=== PATIENT | female | born 1950 | race Native Hawaiian/Other Pacific Islander ===

== ENCOUNTER 2016-03-17 09:56 | Outpatient (CLI) | payer OTHER | END 2016-03-17 19:21 | disposition home or self-care (01) | LOC: RESP 09:56 | DX: R91.8 Other nonspecific abnormal finding of lung field (principal) ==

== ENCOUNTER 2016-03-26 09:25 | Outpatient (CLI) | payer OTHER ==
[2016-03-26 10:59] LABS: PLATELET COUNT 193 K/uL (152-353)
[2016-03-26 11:01] LABS: POTASSIUM 3.5 mmol/L (3.6-5.2)
== END 2016-03-26 19:08 | disposition home or self-care (01) ==
LOC: LABW 09:25
PROVIDERS: Internal Medicine
DX: M25.511 Pain in right shoulder (principal); E11.9 Type 2 diabetes mellitus without complications
CPT/HCPCS: 36415; 80053; 80061; 81000; 82043; 82570; 82607; 83036; 84439; 84443; 85027

== ENCOUNTER 2016-04-25 13:33 | Observation (INO) | payer OTHER ==
[~2016-04-25] VITALS: Ht 167.6 cm; Wt 91.4 kg
[2016-04-25 14:34] VITALS: BP 116/77; TEMP 98.2; Ht 167.6 cm; Wt 91.4 kg
[2016-04-25] MEDS ORDERED: MELOXICAM7.5 MG PO (14:48)
[2016-04-25] MEDS ORDERED: VITAMIN D31000 UNI2 PO (14:49)
[2016-04-25] MEDS ORDERED: FISH OIL DOUB1200 MG PO (14:49)
[2016-04-25] MEDS ORDERED: CENTRUM SILVER1 TAB PO (14:49)
[2016-04-25] MEDS ORDERED: METFTAB PO (14:50)
[2016-04-25] MEDS ORDERED: METO50TA27 PO (14:50)
[2016-04-25] MEDS ORDERED: LISI20TA31 PO (14:50)
[2016-04-25 14:55] LABS: PLATELET COUNT 227 K/uL (152-353)
[2016-04-25 15:03] LABS: POTASSIUM 3.6 mmol/L (3.6-5.2)
[2016-04-25 15:55] VITALS: BP 116/77; TEMP 98.2
[2016-04-25 20:00] VITALS: BP 127/83; TEMP 98.4
[2016-04-26 00:17] VITALS: BP 129/69; TEMP 98.1
[2016-04-26 04:00] VITALS: BP 100/50; TEMP 98.1
[2016-04-26 06:51] LABS: PLATELET COUNT 176 K/uL (152-353)
[2016-04-26 07:00] LABS: POTASSIUM 4.2 mmol/L (3.6-5.2)
[2016-04-26 08:00] VITALS: BP 100/61; TEMP 97.7
[2016-04-26 12:00] VITALS: BP 129/65; TEMP 97.6
== END 2016-04-26 16:21 | disposition home or self-care (01) ==
LOC: MED/SURG 13:33
PROVIDERS: Emergency Medicine; ADMIT Internal Medicine
DX: E86.0 Dehydration (principal); R11.2 Nausea with vomiting, unspecified; R10.30 Lower abdominal pain, unspecified; N20.0 Calculus of kidney
CPT/HCPCS: 36415; 36591; 80048; 80053; 81000; 82150; 82565; 83690; 84520; 85027; 87328; 87329; 96365; 96366; 96367; 96374; 96375; 99220; G0378; G0379; J0744; J3490

== ENCOUNTER 2016-08-08 10:36 | Outpatient (CLI) | payer OTHER, MEDICARE ==
[~2016-08-08 10:36] MED LIST: CENTRUM SILVER1 TAB PO; FISH OIL DOUB1200 MG PO; LISI20TA31 PO; MELOXICAM7.5 MG PO; METFTAB PO; METO50TA27 PO; VITAMIN D31000 UNI2 PO
[2016-08-08 11:26] LABS: PLATELET COUNT 207 K/uL (152-353)
[2016-08-08 11:41] LABS: POTASSIUM 4.1 mmol/L (3.6-5.2)
== END 2016-08-08 11:40 | disposition home or self-care (01) ==
LOC: LABW 10:36
PROVIDERS: Internal Medicine
DX: E11.9 Type 2 diabetes mellitus without complications (principal)
CPT/HCPCS: 36415; 80053; 80061; 81000; 83036; 84443; 85027

== ENCOUNTER 2017-03-23 11:42 | Outpatient (CLI) | payer OTHER, MEDICARE ==
[2017-03-23 12:18] LABS: PLATELET COUNT 209 K/uL (152-353)
[2017-03-23 12:48] LABS: POTASSIUM 4.1 mmol/L (3.6-5.2)
== END 2017-03-23 22:00 | disposition home or self-care (01) ==
LOC: LABW 11:42
PROVIDERS: Physician Assistant
DX: E11.9 Type 2 diabetes mellitus without complications (principal); I10 Essential (primary) hypertension; R79.89 Other specified abnormal findings of blood chemistry; E55.9 Vitamin D deficiency, unspecified
CPT/HCPCS: 36415; 80053; 80061; 82306; 83036; 84439; 84443; 85027

== ENCOUNTER 2017-03-30 10:55 | Outpatient (CLI) | payer OTHER, MEDICARE | END 2017-03-30 19:41 | disposition home or self-care (01) | LOC: MAMMO 10:55 | DX: Z12.31 Encounter for screening mammogram for malignant neoplasm of breast (principal); Z13.820 Encounter for screening for osteoporosis; Z78.0 Asymptomatic menopausal state ==

== ENCOUNTER 2017-06-22 10:20 | Outpatient (CLI) | payer OTHER, MEDICARE | END 2017-06-22 20:03 | disposition home or self-care (01) | LOC: LABW 10:20 | PROVIDERS: Physician Assistant | DX: E78.4 Other hyperlipidemia (principal) | CPT/HCPCS: 36415; 80061 ==

== ENCOUNTER 2017-11-03 14:26 | Outpatient (CLI) | payer OTHER, MEDICARE | END 2017-11-03 23:55 | disposition home or self-care (01) | LOC: RESP 14:26 | DX: I10 Essential (primary) hypertension (principal); R07.89 Other chest pain | CPT/HCPCS: 93005 ==

== ENCOUNTER 2017-11-12 10:58 | Outpatient (CLI) | payer OTHER, MEDICARE | END 2017-11-12 23:21 | disposition home or self-care (01) | LOC: CT 10:58 | DX: R91.8 Other nonspecific abnormal finding of lung field (principal) ==

== ENCOUNTER 2018-02-19 09:16 | Outpatient (CLI) | payer OTHER, MEDICARE ==
[2018-02-19 09:46] LABS: PLATELET COUNT 187 K/uL (152-353)
[2018-02-19 10:15] LABS: POTASSIUM 3.7 mmol/L (3.6-5.2)
== END 2018-02-19 20:49 | disposition home or self-care (01) ==
LOC: LABW 09:16
PROVIDERS: Internal Medicine
DX: E11.9 Type 2 diabetes mellitus without complications (principal); E78.2 Mixed hyperlipidemia; R94.5 Abnormal results of liver function studies; E55.9 Vitamin D deficiency, unspecified
CPT/HCPCS: 36415; 80053; 80061; 82306; 83036; 84439; 84443; 85027

== ENCOUNTER 2018-04-02 09:28 | Outpatient (CLI) | payer OTHER, MEDICARE | END 2018-04-02 18:58 | disposition home or self-care (01) | LOC: MAMMO 09:28 | DX: Z12.31 Encounter for screening mammogram for malignant neoplasm of breast (principal) ==

== ENCOUNTER 2018-04-13 10:16 | Outpatient (CLI) | payer OTHER, MEDICARE | END 2018-04-13 19:47 | disposition home or self-care (01) | LOC: MAMMO 10:16 | DX: R92.8 Other abnormal and inconclusive findings on diagnostic imaging of breast (principal) ==

== ENCOUNTER 2018-05-20 15:00 | Outpatient (CLI) | payer OTHER, MEDICARE ==
[2018-05-20 15:45] LABS: PLATELET COUNT 167 K/uL (152-353)
[2018-05-20 16:03] LABS: POTASSIUM 3.7 mmol/L (3.6-5.2)
== END 2018-05-20 20:22 | disposition home or self-care (01) ==
LOC: LABW 15:00
PROVIDERS: Physician Assistant
DX: G44.201 Tension-type headache, unspecified, intractable (principal); R11.0 Nausea; I10 Essential (primary) hypertension; E11.9 Type 2 diabetes mellitus without complications; Z79.899 Other long term (current) drug therapy
CPT/HCPCS: 36415; 80053; 84439; 84443; 85027; 85651

== ENCOUNTER 2018-06-03 09:33 | Outpatient (CLI) | payer OTHER, MEDICARE | END 2018-06-03 20:45 | disposition home or self-care (01) | LOC: CT 09:33 | DX: R51 Headache (principal) ==

== ENCOUNTER 2021-03-07 12:02 | Outpatient (CLI) | payer OTHER, MEDICARE | END 2021-03-07 18:46 | disposition home or self-care (01) | LOC: RAD 12:02 | PROVIDERS: ATTEND Nurse Practitioner Family | DX: U07.1 COVID-19 (principal) ==

== ENCOUNTER 2021-04-08 09:55 | Outpatient (CLI) | payer OTHER, MEDICARE | END 2021-04-08 19:04 | disposition home or self-care (01) | LOC: MAMMO 09:55 | PROVIDERS: ATTEND Family Medicine | DX: R92.8 Other abnormal and inconclusive findings on diagnostic imaging of breast (principal) | CPT/HCPCS: G0279 ==

== ENCOUNTER 2021-04-11 11:21 | Emergency (ER) | payer OTHER, MEDICARE ==
[~2021-04-11] VITALS: Ht 167.6 cm; Wt 97.5 kg
[2021-04-11 11:32] VITALS: TEMP 97.8
[2021-04-11 12:06] LABS: PLATELET COUNT 199 K/uL (152-353)
[2021-04-11 12:13] LABS: POTASSIUM 4.4 mmol/L (3.6-5.2)
[2021-04-11 12:26] LABS: PARTIAL THROMBOPLASTIN TIME 23.8 SECONDS (24.5-33.6)
[2021-04-11 13:13] VITALS: BP 156/88
== END 2021-04-11 13:13 | disposition home or self-care (01) ==
LOC: ED 11:21
PROVIDERS: Emergency Medicine
DX: I10 Essential (primary) hypertension (principal); R20.0 Anesthesia of skin; I71.2 Thoracic aortic aneurysm, without rupture; Z79.899 Other long term (current) drug therapy; Z51.81 Encounter for therapeutic drug level monitoring
CPT/HCPCS: 80053; 83880; 84484; 85027; 85610; 85730; 93005; 99283

== ENCOUNTER 2021-05-20 10:33 | Outpatient (CLI) | payer OTHER, MEDICARE | END 2021-05-20 19:07 | disposition home or self-care (01) | LOC: RAD 10:33 | PROVIDERS: ATTEND Nurse Practitioner Primary Care | DX: M81.0 Age-related osteoporosis without current pathological fracture (principal) ==

== ENCOUNTER 2021-10-29 10:42 | Outpatient (CLI) | payer OTHER, MEDICARE ==
[2021-10-29 11:26] LABS: PLATELET COUNT 177 K/uL (152-353)
[2021-10-29 12:06] LABS: POTASSIUM 3.9 mmol/L (3.6-5.2)
== END 2021-10-29 19:00 | disposition home or self-care (01) ==
LOC: LABW 10:42
PROVIDERS: ATTEND Nurse Practitioner Family
DX: L29.8 Other pruritus (principal); Z11.59 Encounter for screening for other viral diseases; R53.82 Chronic fatigue, unspecified; C50.411 Malignant neoplasm of upper-outer quadrant of right female breast; E55.9 Vitamin D deficiency, unspecified
CPT/HCPCS: 36415; 80053; 80074; 81002; 82306; 82785; 83516; 83520; 83540; 83550; 84165; 84439; 84443; 85027; 86038; 86160; 86334; 86376; 86800

== ENCOUNTER 2021-10-30 12:43 | Outpatient (CLI) | payer OTHER, MEDICARE | END 2021-10-30 19:37 | disposition home or self-care (01) | LOC: LAB 12:43 | PROVIDERS: ATTEND Nurse Practitioner Family | DX: L29.8 Other pruritus (principal); Z11.59 Encounter for screening for other viral diseases; Z79.899 Other long term (current) drug therapy | CPT/HCPCS: 82272; 87328; 87329; 87338 ==

== ENCOUNTER 2021-11-04 13:34 | Outpatient (CLI) | payer OTHER, MEDICARE | END 2021-11-04 19:52 | disposition home or self-care (01) | LOC: LAB 13:34 | PROVIDERS: ATTEND Nurse Practitioner Family | DX: L29.8 Other pruritus (principal); Z11.59 Encounter for screening for other viral diseases | CPT/HCPCS: 87338 ==

== ENCOUNTER 2021-12-11 11:35 | Outpatient (CLI) | payer OTHER, MEDICARE | END 2021-12-11 19:11 | disposition home or self-care (01) | LOC: LAB 11:35 | PROVIDERS: ATTEND Nurse Practitioner Family | DX: L29.9 Pruritus, unspecified (principal); Z11.59 Encounter for screening for other viral diseases | CPT/HCPCS: 82272 ==

== ENCOUNTER 2022-01-27 13:17 | Outpatient (CLI) | payer OTHER, MEDICARE ==
[2022-01-27 13:59] LABS: POTASSIUM 4.4 mmol/L (3.6-5.2)
[2022-01-27 14:00] LABS: PLATELET COUNT 229 K/uL (152-353)
== END 2022-01-27 20:29 | disposition home or self-care (01) ==
LOC: LABW 13:17
PROVIDERS: Internal Medicine Hematology & Oncology; ATTEND Nurse Practitioner Family
DX: M06.4 Inflammatory polyarthropathy (principal); R76.0 Raised antibody titer; C50.411 Malignant neoplasm of upper-outer quadrant of right female breast; E55.9 Vitamin D deficiency, unspecified
CPT/HCPCS: 36415; 80053; 85027

== ENCOUNTER 2022-05-09 12:40 | Outpatient (CLI) | payer OTHER, MEDICARE | END 2022-05-09 22:54 | disposition home or self-care (01) | LOC: CT 12:40 | PROVIDERS: ATTEND Nurse Practitioner Family | DX: R91.8 Other nonspecific abnormal finding of lung field (principal) ==

== ENCOUNTER 2022-05-19 11:34 | Outpatient (CLI) | payer OTHER, MEDICARE ==
[2022-05-19 12:03] LABS: PLATELET COUNT 198 K/uL (152-353)
[2022-05-19 12:27] LABS: POTASSIUM 4.2 mmol/L (3.6-5.2)
== END 2022-05-19 19:04 | disposition home or self-care (01) ==
LOC: LABW 11:34
PROVIDERS: ATTEND Internal Medicine Hematology & Oncology
DX: C50.411 Malignant neoplasm of upper-outer quadrant of right female breast (principal); E55.9 Vitamin D deficiency, unspecified
CPT/HCPCS: 36415; 80053; 82784; 82785; 83883; 84165; 85027

== ENCOUNTER 2022-05-22 10:51 | Outpatient (CLI) | payer OTHER, MEDICARE | END 2022-05-22 19:34 | disposition home or self-care (01) | LOC: RAD 10:51 | PROVIDERS: ATTEND Internal Medicine Hematology & Oncology | DX: M81.0 Age-related osteoporosis without current pathological fracture (principal) ==

== ENCOUNTER 2022-10-06 11:41 | Outpatient (CLI) | payer OTHER, MEDICARE ==
[2022-10-06 12:18] LABS: PLATELET COUNT 215 K/uL (152-353)
[2022-10-06 12:27] LABS: POTASSIUM 3.8 mmol/L (3.6-5.2)
== END 2022-10-06 21:56 | disposition home or self-care (01) ==
LOC: LABW 11:41
PROVIDERS: ATTEND Student in an Organized Health Care Education/Training Program
DX: I12.9 Hypertensive chronic kidney disease with stage 1 through stage 4 chronic kidney disease, or unspecified chronic kidney disease (principal); N18.31 Chronic kidney disease, stage 3a; D63.1 Anemia in chronic kidney disease; E11.9 Type 2 diabetes mellitus without complications; R80.8 Other proteinuria; N25.81 Secondary hyperparathyroidism of renal origin; R53.82 Chronic fatigue, unspecified
CPT/HCPCS: 36415; 80053; 80074; 81002; 82306; 82550; 82570; 83036; 83735; 83970; 84100; 84156; 84165; 84550; 85027; 86037; 86160; 86592; 86701; 86702; 87389

== ENCOUNTER 2022-10-07 09:06 | Outpatient (CLI) | payer OTHER, MEDICARE | END 2022-10-07 20:10 | disposition home or self-care (01) | LOC: LAB 09:06 → US 09:06 → LAB 20:10 | PROVIDERS: ATTEND Student in an Organized Health Care Education/Training Program | DX: I12.9 Hypertensive chronic kidney disease with stage 1 through stage 4 chronic kidney disease, or unspecified chronic kidney disease (principal); N18.31 Chronic kidney disease, stage 3a; D63.1 Anemia in chronic kidney disease; E11.9 Type 2 diabetes mellitus without complications; R80.8 Other proteinuria; N25.81 Secondary hyperparathyroidism of renal origin | CPT/HCPCS: 80061; 84439; 84443 ==

== ENCOUNTER 2022-10-16 12:15 | Outpatient (CLI) | payer OTHER, MEDICARE | END 2022-10-16 18:59 | disposition home or self-care (01) | LOC: LAB 12:15 | PROVIDERS: ATTEND Internal Medicine | DX: N39.0 Urinary tract infection, site not specified (principal) | CPT/HCPCS: 81000; 87086; 87088 ==